=== PATIENT | female | born 1995 | race Caucasian/White ===

== ENCOUNTER 2025-01-15 09:24 | Emergency (ER) | payer MEDICAID, OTHER ==
[~2025-01-15] VITALS: Ht 175.3 cm; Wt 123.6 kg
[2025-01-15 09:45] VITALS: BP 142/75; PULSE 63; RESP 18; TEMP 98.1; O2SAT 100
--- NOTE | 2025-01-15 10:02 | Physician Documentation ---
History of Present Illness ~ Chief Complaint: Flank Pain Stated Complaint: POSS KIDNEY INFECTION Primary Medical Doctor: KRISTEN COLORADO This is a 29-year-old female who presents with bilateral flank pain for the past five days, patient reports some hematuria patient additionally reports some episodes of emesis that did contain blood. She reports no history of kidney stones. Medication Reconciliation Allergies: Coded Allergies: No Known Allergies (Unverified , 08/16/10) Past Medical History Past Medical History: No Pertinent History, Asthma Past Surgical History: no surgical history Alcohol Use: None Drug Use: none Occupation: student Review of Systems ROS As stated above in the HPI, otherwise all systems are reviewed and negative. Physical Exam Vital Signs: Temperature: 98.1, Source: Temporal, Heart Rate: 63, Respiratory Rate: 18, BP: 142/75, Pulse Oximetry: 100, Weight: 123.640 Oxygen Flow Rate: 0 Physical Exam VITALS: Reviewed and as above. GENERAL: Alert, nontoxic appearing, no apparent distress.: RESPIRATORY: No increased work of breathing, no respiratory distress, speaking in full clear sentences Progress Results/Orders Results/Orders Vital Signs 01/15/25 09:45 Temp 98.1 Pulse 63 Resp 18 B/P (MAP) 142/75 Pulse Ox 100 O2 Flow Rate 0 Laboratory Tests Test 01/15/25 09:48 Urine Specimen Description Cln catch midstream Urine Color Yellow Urine Clarity Clear Urine pH 6.0 Urine Specific [place] 1.020 Urine Protein Negative Urine Glucose (UA) Negative Urine Ketones Negative Urine Occult Blood Negative Urine Nitrite Negative Urine Bilirubin Negative Urine Urobilinogen 0.2 Urine Leukocyte Esterase Negative Urine Culture Indicated Not ind Volume Urine Centrifuged 10 ml Urine HCG, Qualitative Negative Urine Comment Medical Decision Making Findings MSE performed in triage and patient returned to ED lobby by nursing staff to await available ED room, patient appears to have eloped while waiting in the ED lobby Urinary Diff Dx:Considerations: Include: Aortic dissection, Appendicitis, Cholelithiasis, Choleangitis, Ovarian torsion, Pancreatitis, Pyelonephritis, Renal failure, Strain, Urinary Obstruction, Urolithiasis, Urinary retention, UTI Departure Disposition: LEFT AWOL/ELOPED Impression: Primary Impression: Flank pain Referrals: NO PRIMARY CARE PROVIDER (PCP) Signature Scribe Signature: No scribe Attestation: The note accurately reflects work and decisions made by me.BILLY Salas 01/18/25 22:06 ENRIQUETA PEREZ Jan 15, 2025 10:02
[2025-01-15 10:40] LABS: BILIRUBIN,URINE NEGATIVE (Neg); CLARITY,URINE CLEAR (Clear); COLOR,URINE YELLOW (Yellow); GLUCOSE, URINE NEGATIVE (Neg); KETONES,URINE NEGATIVE (Neg); LEUKOCYTE ESTERASE ,URINE NEGATIVE (Neg); NITRITES, URINE NEGATIVE (Neg); OCCULT BLOOD,URINE NEGATIVE (Neg); PROTEIN,URINE NEGATIVE (Neg); UROBILINOGEN,URINE 0.2 E.U/dL (0.2-1.0)
[2025-01-15 10:42] LABS: UA COLLECTION TYPE CLN CATCH MIDSTREAM
[2025-01-15 10:46] LABS: URINE HCG NEGATIVE (NEG)
== END 2025-01-15 10:41 | disposition left against medical advice (07) ==
LOC: ER 09:25
DX: R10.9 Unspecified abdominal pain (principal); R11.10 Vomiting, unspecified; R31.9 Hematuria, unspecified
CPT/HCPCS: 81003; 81025; 99283